=== PATIENT | male | born 1960 | race American Indian/Alaskan Native ===

== ENCOUNTER 2017-11-04 17:04 | Inpatient (IN) | payer OTHER ==
[2017-11-04] MEDS ORDERED: DUONEB *Not for PRN Use IH ONE ×3 (17:21→17:22)
--- NOTE | 2017-11-04 17:37 | Emergency Department Report ---
ED Shortness of Breath HPI - General Stated Complaint: romie Time Seen by Provider: 11/04/17 17:04 Source: patient, RN/MD Mode of arrival: Wheelchair Limitations: Physical Limitation - History of Present Illness Initial Comments: Patient is a 57-year-old male that presents emergency room in respiratory distress and status asthmaticus. Patient states he inhaled bleach and ammonia at work and caused his asthma to flareup. Patient complains of chest pain or shortness of breath. Patient denies fever and chills. Patient also complains of cough. Patient state all the symptoms started just prior to arrival. Patient came by private vehicle. MD Complaint: shortness of breath, cough -: Sudden Severity: severe Quality: aching Consistency: constant Improves With: oxygen, rest, bronchodilators Worsens With: lying flat Known History Of: asthma Context: other (inhalation exposure) Associated Symptoms: denies other symptoms, chest pain, pain with inspiration, cough, sputum production Treatments Prior to Arrival: none - Related Data Home Oxygen Therapy: No Allergies Allergy/AdvReac Type Severity Reaction Status Date / Time No Known Allergies Allergy Unverified 11/04/17 17:26 ED Review of Systems ROS: Stated complaint: romie Other details as noted in HPI Comment: All other systems reviewed and negative Constitutional: denies: chills, fever Eyes: denies: eye pain, eye discharge, vision change ENT: denies: ear pain, throat pain Respiratory: see HPI, cough, shortness of breath. denies: wheezing Cardiovascular: chest pain. denies: palpitations Endocrine: no symptoms reported Gastrointestinal: denies: abdominal pain, nausea, diarrhea Genitourinary: denies: urgency, dysuria Musculoskeletal: denies: back pain, joint swelling, arthralgia Skin: denies: rash, lesions Neurological: denies: headache, weakness, paresthesias Psychiatric: denies: anxiety, depression Hematological/Lymphatic: denies: easy bleeding, easy bruising ED Past Medical Hx - Past Medical History Previous Medical History?: Yes Hx Asthma: Yes - Surgical History Past Surgical History?: No - Family History Family history: hypertension - Social History Smoking Status: Never Smoker Substance Use Type: None ED Physical Exam - General Limitations: Physical Limitation General appearance: alert, in no apparent distress - Head Head exam: Present: atraumatic, normocephalic - Eye Eye exam: Present: normal appearance - ENT ENT exam: Present: mucous membranes moist - Neck Neck exam: Present: normal inspection - Respiratory Respiratory exam: Present: normal lung sounds bilaterally, respiratory distress , wheezes, chest wall tenderness, accessory muscle use - Cardiovascular Cardiovascular Exam: Present: regular rate, normal rhythm. Absent: systolic murmur, diastolic murmur, rubs, gallop - GI/Abdominal GI/Abdominal exam: Present: soft, normal bowel sounds - Rectal Rectal exam: Present: deferred - Extremities Exam Extremities exam: Present: normal inspection - Back Exam Back exam: Present: normal inspection - Neurological Exam Neurological exam: Present: alert, oriented X3 - Psychiatric Psychiatric exam: Present: normal affect, normal mood - Skin Skin exam: Present: warm, dry, intact, normal color. Absent: rash ED Course Vital Signs 11/04/17 11/04/17 11/04/17 17:08 17:24 17:30 Pulse Rate 93 H Pulse Rate [ 101 H Anterior Bilateral Throughout] Respiratory 33 H Rate Respiratory 30 H Rate [Anterior Bilateral Throughout] Blood Pressure 193/110 O2 Sat by Pulse 100 93 Oximetry 11/04/17 11/04/17 11/04/17 17:41 17:45 18:01 Pulse Rate 100 H 100 H Pulse Rate [ 98 H Anterior Bilateral Throughout] Respiratory 34 H 38 H Rate Respiratory 27 H Rate [Anterior Bilateral Throughout] Blood Pressure 193/110 169/103 O2 Sat by Pulse 97 96 Oximetry 11/04/17 11/04/17 18:30 19:00 Pulse Rate 106 H 94 H Pulse Rate [ Anterior Bilateral Throughout] Respiratory 30 H 28 H Rate Respiratory Rate [Anterior Bilateral Throughout] Blood Pressure 164/100 141/86 O2 Sat by Pulse 97 96 Oximetry - Reevaluation(s) Reevaluation #1: Patient improving with interventions. Patient's satting better and work of breathing has decreased. Will place patient on BiPAP and monitor 11/04/17 17:10 Reevaluation #2: Patient improving. Will consult hospitalist for admission. 11/04/17 18:30 ED Medical Decision Making - Lab Data Result diagrams: 11/04/17 17:20 11/04/17 17:20 - EKG Data -: EKG Interpreted by Mi EKG shows normal: sinus rhythm, axis (axis deviation), intervals, QRS complexes , ST-T waves Rate: normal - EKG Data Interpretation: [facility] - Radiology Data Radiology results: report reviewed, image reviewed - Medical Decision Making Patient is a 57-year-old male who presents in motion or with an inhalation causing an exacerbation of his asthma that was in status asthmaticus. Patient improved but will admit for further evaluation. Hospitalist agreed to admit. - Differential Diagnosis S, asthma exacerbation, chest pain, shortness of breath, cough Critical care attestation.: If time is entered above; I have spent that time in minutes in the direct care of this critically ill patient, excluding procedure time. ED Disposition Clinical Impression: Status asthmaticus, Asthma exacerbation, Hypoxia, Shortness of breath, Chest pain Disposition: OP ADMIT IP TO THIS HOSP Is pt being admited?: Yes Does the pt Need Aspirin: No Condition: Critical Time of Disposition: 19:20
[2017-11-04 17:53] LABS: Basophils # (Auto) 0.1 K/mm3 (0.0-0.1); Basophils % (Auto) 0.8 % (0.0-1.8); Eosinophils # (Auto) 0.2 K/mm3 (0.0-0.4); Hematocrit 48.5 % (35.5-45.6); Lymphocytes # (Auto) 2.5 K/mm3 (1.2-5.4); Lymphocytes % (Auto) 30.5 % (13.4-35.0); Mean Corpuscular HGB Conc 33 % (32-34); Mean Corpuscular Hemoglobin 32 pg (28-32); Mean Corpuscular Volume 98 fl (84-94); Monocytes # (Auto) 0.4 K/mm3 (0.0-0.8); Monocytes % (Auto) 5.2 % (0.0-7.3); Platelet Count 290 K/mm3 (140-440); Red Blood Count 4.94 M/mm3 (3.65-5.03); Red Cell Distribution Width 14.3 % (13.2-15.2)
[2017-11-04 18:03] LABS: Albumin 4.7 g/dL (3.9-5); BUN/Creatinine Ratio 13; Blood Urea Nitrogen 13 mg/dL (9-20); Calcium 9.3 mg/dL (8.4-10.2); Hemolysis Index 146
[2017-11-04 18:08] LABS: Alanine Aminotransferase 57 units/L (7-56)
--- NOTE | 2017-11-04 19:33 | XRay Report ---
FINAL REPORT PROCEDURE: XR CHEST 1V AP TECHNIQUE: Chest radiograph anteroposterior view. CPT 70819 HISTORY: Shortness of breath COMPARISON: No prior studies are available for comparison. FINDINGS: Heart: Normal. Mediastinum/Vessels: Moderate central congestion with cephalization of flow Lungs/Pleural space: Normal. Bony thorax: No acute osseous abnormality. Life support devices: None. IMPRESSION: Central congestion without isiah heart failure. COPD..
[2017-11-04] MEDS ORDERED: ZOFRAN IV PRN (22:59)
[2017-11-04] MEDS ORDERED: SODIUM CHLORIDE FLUSH SYRINGE 10 ML IV PRN (22:59)
[2017-11-04] MEDS ORDERED: PERCOCET 5/325 PO PRN (22:59)
[2017-11-04] MEDS ORDERED: TYLENOL PO PRN (22:59)
--- NOTE | 2017-11-04 22:59 | History and Physical Report ---
History of Present Illness Date of examination: 11/04/17 Date of admission: 11/04/2017 Chief complaint: Chief complaint: Increasing shortness of breath for a few hours after exposure to bleach History of present illness: History of Present Illness Patient is a 57-year-old male that presents emergency room in respiratory distress and status asthmaticus. Patient states he inhaled bleach and ammonia at work and caused his asthma to flareup. Patient complains of chest pain or shortness of breath. Patient denies fever and chills. Patient also complains of cough. Patient state all the symptoms started just prior to arrival. Patient came by private vehicle. 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 Severe wheezing present. No fever no chills. Past Medical History Previous Medical History?: Yes Hx Asthma: Yes Surgical History Past Surgical History?: No Family History Family history: hypertension Social History Smoking Status: Never Smoker Substance Use Type: None Review of Systems ROS: Stated complaint: romie Other details as noted in HPI Comment: All other systems reviewed and negative Constitutional: denies: chills, fever Eyes: denies: eye pain, eye discharge, vision change ENT: denies: ear pain, throat pain Respiratory: see HPI, cough, shortness of breath. wheezing present Cardiovascular: chest pain. denies: palpitations Endocrine: no symptoms reported Gastrointestinal: denies: abdominal pain, nausea, diarrhea Genitourinary: denies: urgency, dysuria Musculoskeletal: denies: back pain, joint swelling, arthralgia Skin: denies: rash, lesions Neurological: denies: headache, weakness, paresthesias Psychiatric: denies: anxiety, depression Medications and Allergies Allergies Allergy/AdvReac Type Severity Reaction Status Date / Time No Known Allergies Allergy Unverified 11/04/17 17:26 Home Medications Medication Instructions Recorded Confirmed Last Taken Type Atenolol [Tenormin] 50 mg PO DAILY 11/04/17 11/04/17 Unknown History amLODIPine [Norvasc] 5 mg PO QHS 11/04/17 11/04/17 Unknown History Exam - Physical Exam Narrative exam: Patient in moderate to severe respiratory distress on BiPAP - Constitutional Vitals: Temp Pulse Resp BP Pulse Ox 99 F 86 24 150/92 95 11/04/17 19:52 11/04/17 21:30 11/04/17 21:30 11/04/17 21:30 11/04/17 21:30 General appearance: Present: severe distress, well-nourished - EENT Eyes: Present: PERRL ENT: hearing intact, clear oral mucosa - Neck Neck: Present: supple, normal ROM - Respiratory Respiratory effort: normal Respiratory: bilateral: diminished, rhonchi - Cardiovascular Heart rate: 80 Rhythm: regular Heart Sounds: Present: S1 & S2. Absent: rub, click - Extremities Extremities: no ischemia, pulses intact, pulses symmetrical, No edema Peripheral Pulses: within normal limits - Abdominal General gastrointestinal: Present: soft, non-tender, non-distended, normal bowel sounds Male genitourinary: Present: normal - Rectal Rectal Exam: deferred - Integumentary Integumentary: Present: clear, warm, dry - Musculoskeletal Musculoskeletal: gait normal, strength equal bilaterally - Psychiatric Psychiatric: appropriate mood/affect, intact judgment & insight - Neurologic Neurologic: CNII-XII intact, moves all extremities - Allied Health Allied health notes reviewed: nursing, case management Results - Labs CBC & Chem 7: 11/04/17 17:20 11/04/17 17:20 Labs: Laboratory Last Values WBC 8.3 K/mm3 (4.5-11.0) 11/04/17 17:20 RBC 4.94 M/mm3 (3.65-5.03) 11/04/17 17:20 Hgb 16.0 gm/dl (11.8-15.2) H 11/04/17 17:20 Hct 48.5 % (35.5-45.6) H 11/04/17 17:20 MCV 98 fl (84-94) H 11/04/17 17:20 MCH 32 pg (28-32) 11/04/17 17:20 MCHC 33 % (32-34) 11/04/17 17:20 RDW 14.3 % (13.2-15.2) 11/04/17 17:20 Plt Count 290 K/mm3 (140-440) 11/04/17 17:20 Lymph % (Auto) 30.5 % (13.4-35.0) 11/04/17 17:20 [place] % (Auto) 5.2 % (0.0-7.3) 11/04/17 17:20 Eos % (Auto) 2.0 % (0.0-4.3) 11/04/17 17:20 Baso % (Auto) 0.8 % (0.0-1.8) 11/04/17 17:20 Lymph # 2.5 K/mm3 (1.2-5.4) 11/04/17 17:20 [place] # 0.4 K/mm3 (0.0-0.8) 11/04/17 17:20 Eos # 0.2 K/mm3 (0.0-0.4) 11/04/17 17:20 Baso # 0.1 K/mm3 (0.0-0.1) 11/04/17 17:20 Seg Neutrophils % 61.5 % (40.0-70.0) 11/04/17 17:20 Seg Neutrophils # 5.1 K/mm3 (1.8-7.7) 11/04/17 17:20 Sodium 139 mmol/L (137-145) 11/04/17 17:20 Potassium 5.3 mmol/L (3.6-5.0) H 11/04/17 17:20 Chloride 94.6 mmol/L (98-107) L 11/04/17 17:20 Carbon Dioxide 28 mmol/L (22-30) 11/04/17 17:20 Anion Gap 22 mmol/L 11/04/17 17:20 BUN 13 mg/dL (9-20) 11/04/17 17:20 Creatinine 1.0 mg/dL (0.8-1.5) 11/04/17 17:20 Estimated GFR > 60 ml/min 11/04/17 17:20 BUN/Creatinine Ratio 13 % 11/04/17 17:20 Glucose 121 mg/dL (75-100) H 11/04/17 17:20 Calcium 9.3 mg/dL (8.4-10.2) 11/04/17 17:20 Total Bilirubin 0.20 mg/dL (0.1-1.2) 11/04/17 17:20 AST 53 units/L (5-40) H 11/04/17 17:20 ALT 57 units/L (7-56) H 11/04/17 17:20 Alkaline Phosphatase 76 units/L (35-129) 11/04/17 17:20 Total Protein 8.3 g/dL (6.3-8.2) H 11/04/17 17:20 Albumin 4.7 g/dL (3.9-5) 11/04/17 17:20 Albumin/Globulin Ratio 1.3 % 11/04/17 17:20 Short CBC 11/04/17 Range/Units 17:20 WBC 8.3 (4.5-11.0) K/mm3 Hgb 16.0 H (11.8-15.2) gm/dl Hct 48.5 H (35.5-45.6) % Plt Count 290 (140-440) K/mm3 BMP 11/04/17 17:20 Sodium 139 Potassium 5.3 H Chloride 94.6 L Carbon Dioxide 28 BUN 13 Creatinine 1.0 Glucose 121 H Calcium 9.3 Liver Function 11/04/17 Range/Units 17:20 Total Bilirubin 0.20 (0.1-1.2) mg/dL AST 53 H (5-40) units/L ALT 57 H (7-56) units/L Alkaline Phosphatase 76 (35-129) units/L Albumin 4.7 (3.9-5) g/dL - Imaging and Cardiology Imaging and Cardiology: Chest x-ray Central congestion without isiah heart failure COPD Assessment and Plan Advance Directives: Yes (full code) VTE prophylaxis?: Chemical Plan of care discussed with patient/family: Yes - Patient Problems (1) Acute respiratory failure with hypoxemia Current Visit: Yes Status: Acute Plan to address problem: Patient stats were low and had to be initiated on BiPAP. 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 Bleach may have precipitated his asthma. We will defer to pulmonary for a suggestions (4) Hyperkalemia Current Visit: Yes Status: Acute Plan to address problem: Mild. Should resolve with IV fluids. Recheck potassium. (5) DVT prophylaxis Current Visit: Yes Status: Acute Plan to address problem: Subcutaneous heparin
[2017-11-04] MEDS ORDERED: DUONEB *Not for PRN Use IH (23:25)
--- NOTE | 2017-11-04 23:28 | Event Note ---
Date: 11/04/17
[2017-11-04] MEDS ORDERED: HEPARIN ONE (23:35)
[2017-11-04] MEDS ORDERED: PROVENTIL IH PRN (23:41)
[2017-11-04] MEDS: HEPARIN SUB-Q SCH (23:43)
[2017-11-05] MEDS: HEPARIN SUB-Q SCH ×3 (07:12→21:13)
[2017-11-05] MEDS ORDERED: LASIX IV ONE (09:00)
[2017-11-05] MEDS ORDERED: NON-FORMULARY (Atenolol 50 MG) PO SCH (10:00)
[2017-11-05] MEDS: DUONEB *Not for PRN Use IH SCH ×4 (10:13→22:36)
[2017-11-05] MEDS: NACL 0.9% 1000 ML 1,000 ML IV SCH (10:16)
[2017-11-05 10:23] LABS: BUN/Creatinine Ratio 13; Blood Urea Nitrogen 12 mg/dL (9-20); Calcium 9.7 mg/dL (8.4-10.2); Hemolysis Index 4
[2017-11-05] MEDS: LEVAQUIN 750MG/150ML 750 MG/150 ML BAG IV SCH (10:25)
[2017-11-05] MEDS: TENORMIN PO SCH (10:32)
[2017-11-05] MEDS: SODIUM CHLORIDE FLUSH SYRINGE 10 ML IV SCH ×2 (10:59→21:25)
[2017-11-05] MEDS ORDERED: Fluarix Quad 2017-2018(36 MOS+ IM ONE (12:00)
--- NOTE | 2017-11-05 13:16 | Progress Note ---
Assessment and Plan Assessment and plan: --Acute hypoxic respiratory failure; secondary bronchospasm due to allergic reaction, symptoms slightly improved Continue oxygen and bronchodilators, IV steroids and supportive care --Acute exacerbation of bronchial asthma; nebulizers, oxygen, IV steroids, IV antibiotics --Acute bronchitis/pneumonitis; continue IV antibiotics follow cultures --Hyperkalemia; corrected, closely monitor electrolytes --Mild transaminitis; unknown etiology, closely monitor --Hypertension; moderate control, continue current antihypertensives amlodipine and atenolol and when necessary hydralazine --DVT prophylaxis; heparin Start tapering steroids, evaluate for home oxygen upon discharge Possible discharge in 1-2 days if stable History Interval history: Patient seen and examined medical records reviewed No new events reported by the nursing staff Feels slightly better but still has some wheeze and shortness of breath Denies chest pain Alert awake oriented 3 Vital signs reviewed Hospitalist Physical - Constitutional Vitals: Temp Pulse Resp BP Pulse Ox 99.2 F 85 20 131/88 96 11/05/17 11:44 11/05/17 11:44 11/05/17 11:44 11/05/17 11:43 11/05/17 11:44 General appearance: Present: no acute distress, well-nourished - EENT Eyes: Present: PERRL, EOM intact - Neck Neck: Present: supple, normal ROM - Respiratory Respiratory effort: normal Respiratory: bilateral: diminished, wheezing, negative: rales, rhonchi - Cardiovascular Rhythm: regular Heart Sounds: Present: S1 & S2 - Extremities Extremities: no ischemia, No edema - Abdominal General gastrointestinal: soft, non-tender, non-distended, normal bowel sounds - Integumentary Integumentary: Present: clear, warm - Psychiatric Psychiatric: appropriate mood/affect, cooperative - Neurologic Neurologic: CNII-XII intact, moves all extremities Results - Labs CBC & Chem 7: 11/04/17 17:20 11/05/17 09:01 Labs: Laboratory Last Values WBC 8.3 K/mm3 (4.5-11.0) 11/04/17 17:20 RBC 4.94 M/mm3 (3.65-5.03) 11/04/17 17:20 Hgb 16.0 gm/dl (11.8-15.2) H 11/04/17 17:20 Hct 48.5 % (35.5-45.6) H 11/04/17 17:20 MCV 98 fl (84-94) H 11/04/17 17:20 MCH 32 pg (28-32) 11/04/17 17:20 MCHC 33 % (32-34) 11/04/17 17:20 RDW 14.3 % (13.2-15.2) 11/04/17 17:20 Plt Count 290 K/mm3 (140-440) 11/04/17 17:20 Lymph % (Auto) 30.5 % (13.4-35.0) 11/04/17 17:20 [place] % (Auto) 5.2 % (0.0-7.3) 11/04/17 17:20 Eos % (Auto) 2.0 % (0.0-4.3) 11/04/17 17:20 Baso % (Auto) 0.8 % (0.0-1.8) 11/04/17 17:20 Lymph # 2.5 K/mm3 (1.2-5.4) 11/04/17 17:20 [place] # 0.4 K/mm3 (0.0-0.8) 11/04/17 17:20 Eos # 0.2 K/mm3 (0.0-0.4) 11/04/17 17:20 Baso # 0.1 K/mm3 (0.0-0.1) 11/04/17 17:20 Seg Neutrophils % 61.5 % (40.0-70.0) 11/04/17 17:20 Seg Neutrophils # 5.1 K/mm3 (1.8-7.7) 11/04/17 17:20 Sodium 139 mmol/L (137-145) 11/05/17 09:01 Potassium 4.7 mmol/L (3.6-5.0) 11/05/17 09:01 Chloride 96.8 mmol/L (98-107) L 11/05/17 09:01 Carbon Dioxide 26 mmol/L (22-30) 11/05/17 09:01 Anion Gap 21 mmol/L 11/05/17 09:01 BUN 12 mg/dL (9-20) 11/05/17 09:01 Creatinine 0.9 mg/dL (0.8-1.5) 11/05/17 09:01 Estimated GFR > 60 ml/min 11/05/17 09:01 BUN/Creatinine Ratio 13 % 11/05/17 09:01 Glucose 173 mg/dL (75-100) H 11/05/17 09:01 Hemoglobin A1c 6.2 % (4-6) H 11/04/17 23:45 Calcium 9.7 mg/dL (8.4-10.2) 11/05/17 09:01 Total Bilirubin 0.20 mg/dL (0.1-1.2) 11/04/17 17:20 AST 53 units/L (5-40) H 11/04/17 17:20 ALT 57 units/L (7-56) H 11/04/17 17:20 Alkaline Phosphatase 76 units/L (35-129) 11/04/17 17:20 Total Protein 8.3 g/dL (6.3-8.2) H 11/04/17 17:20 Albumin 4.7 g/dL (3.9-5) 11/04/17 17:20 Albumin/Globulin Ratio 1.3 % 11/04/17 17:20
--- NOTE | 2017-11-05 18:07 | Consultation ---
History of Present Illness Consult date: 11/05/17 Reason for consult: dyspnea, cough History of present illness: PULMONARY CONSULTATION DR. ALMONTE THANK YOU FOR ASKING US TO PARTICIPATE IN THE CARE OF THIS PATIENT. This is 57 year old [place] male admitted with shortness of breath and cough. Patient has history of smoking 1/2 a pack a day for 25 years. Patient may have COPD exacerbation. Patient has cough with productive yellow sputum and nasal congestion. Patient went to work with these symptoms, Patient inhaled bleach and ammonia at work caused more exacerbation of COPD. Patient denies child chaudhry asthma. Patient has history of hypertension. No known allergies to medications. Denies alcohol or drug abuse. Patient . Children 1.Denies fever and chills. Past History Past Medical History: COPD, hypertension Social history: smoking. denies: alcohol abuse, prescription drug abuse, IV drug use Medications and Allergies Allergies Allergy/AdvReac Type Severity Reaction Status Date / Time No Known Allergies Allergy Unverified 11/04/17 17:26 Home Medications Medication Instructions Recorded Confirmed Last Taken Type Atenolol [Tenormin] 50 mg PO DAILY 11/04/17 11/04/17 Unknown History amLODIPine [Norvasc] 5 mg PO QHS 11/04/17 11/04/17 Unknown History Active Meds: Active Medications Acetaminophen (Tylenol) 650 mg PO Q4H PRN PRN Reason: Pain MILD(1-3)/Fever >100.5/GEE Albuterol (Proventil) 2.5 mg IH Q3HRT PRN PRN Reason: Wheezing Albuterol/Ipratropium (Duoneb *Not For Prn Use*) 1 ampul IH QIDRT [facility] Last Admin: 11/05/17 15:36 Dose: 1 ampul Amlodipine Besylate (Norvasc) 5 mg PO QHS [facility] Atenolol (Tenormin) 50 mg PO QDAY [facility] Last Admin: 11/05/17 10:32 Dose: 50 mg Heparin Sodium (Porcine) (Heparin) 5,000 unit SUB-Q Q8HR [facility] Last Admin: 11/05/17 14:15 Dose: 5,000 unit Levofloxacin/Dextrose (Levaquin 750mg/150ml) 750 mg in 150 mls @ 100 mls/hr IV Q24HR [facility]; Protocol Last Admin: 11/05/17 10:25 Dose: 100 mls/hr Sodium Chloride (Nacl 0.9% 1000 Ml) 1,000 mls @ 75 mls/hr IV DIRECT [facility] Last Admin: 11/05/17 10:16 Dose: 75 mls/hr Methylprednisolone Sodium Succinate (Solu-Medrol) 125 mg IV Q8H [facility] Last Admin: 11/05/17 10:43 Dose: 125 mg Ondansetron HCl (Zofran) 4 mg IV Q8H PRN PRN Reason: Nausea And Vomiting Oxycodone/Acetaminophen (Percocet 5/325) 1 tab PO Q6H PRN PRN Reason: Pain, Moderate (4-6) Sodium Chloride (Sodium Chloride Flush Syringe 10 Ml) 10 ml IV BID [facility] Last Admin: 11/05/17 10:59 Dose: Not Given Sodium Chloride (Sodium Chloride Flush Syringe 10 Ml) 10 ml IV PRN PRN PRN Reason: LINE FLUSH Review of Systems All systems: negative Physical Examination Vital signs: Vital Signs Pulse Ox 100 11/04/17 17:08 General appearance: no acute distress, alert Eyes: non-icteric ENT: oropharynx moist Neck: supple, no JVD Ascultation: Bilateral: diminished breath sounds (Prolonged expiratory phase.) Cardiovascular: regular rate and rhythm Gastrointestinal: normoactive bowel sounds, soft, non-tender Integumentary: normal Extremities: no cyanosis, no edema Musculoskeletal: no deformities Gait: normal gait normal mental status, non-focal exam, pupils equal and round, CN II-XII normal mood appropriate Results - Laboratory Findings CBC and BMP: 11/04/17 17:20 11/05/17 09:01 Abnormal lab findings: Abnormal Labs 11/04/17 11/04/17 11/04/17 17:20 17:20 23:45 Hgb 16.0 H Hct 48.5 H MCV 98 H Potassium 5.3 H Chloride 94.6 L Glucose 121 H Hemoglobin A1c 6.2 H AST 53 H ALT 57 H Total Protein 8.3 H 11/05/17 09:01 Hgb Hct MCV Potassium Chloride 96.8 L Glucose 173 H Hemoglobin A1c AST ALT Total Protein - Diagnostic Findings Chest x-ray: report reviewed (Central congestion with out isiah failure.), image reviewed Assessment and Plan his is 57 year old [place] male admitted with shortness of breath and cough. Patient has history of smoking 1/2 a pack a day for 25 years. Patient may have COPD exacerbation. Patient has cough with productive yellow sputum and nasal congestion. Patient went to work with these symptoms, Patient inhaled bleach and ammonia at work caused more exacerbation of COPD. Patient denies child chaudhry asthma. Patient has history of hypertension. No known allergies to medications. Denies alcohol or drug abuse. Patient . Children 1.Denies fever and chills. - Patient Problems (1) COPD exacerbation Current Visit: Yes Status: Acute Plan to address problem: O2 2 litres via nasal canula. Albuterol/atrovent aerosol treatments q 6 hours. Continue I/V solumedral Continue S/C Heparin. Recommend PFTs. Counselled to stop smoking. (2) Acute bronchitis Current Visit: Yes Status: Acute Plan to address problem: Patient is on levaquine. (3) Allergic rhinitis Current Visit: Yes Status: Acute Plan to address problem: Recommend claritin 10 mg po qd prn for nasal congestion. (4) Exposure to chemical inhalation Current Visit: Yes Status: Acute Plan to address problem: Repeat chest xray. ABGs on room air.
[2017-11-05] MEDS ORDERED: NORVASC PO SCH (22:00)
[2017-11-06] MEDS: NACL 0.9% 1000 ML 1,000 ML IV SCH (01:59)
[2017-11-06] MEDS: HEPARIN SUB-Q SCH ×2 (05:43→13:48)
[2017-11-06 08:11] VITALS: BP 150/89
[2017-11-06] MEDS: DUONEB *Not for PRN Use IH SCH (09:05)
[2017-11-06] MEDS: LEVAQUIN 750MG/150ML 750 MG/150 ML BAG IV SCH (09:50)
[2017-11-06] MEDS: SODIUM CHLORIDE FLUSH SYRINGE 10 ML IV SCH (09:51)
[2017-11-06] MEDS: TENORMIN PO SCH (09:55)
--- NOTE | 2017-11-06 12:58 | Progress Note ---
Hospitalist Physical - Constitutional Vitals: Temp Pulse Resp BP Pulse Ox 98.0 F 96 H 19 150/89 98 11/06/17 07:52 11/06/17 09:22 11/06/17 09:22 11/06/17 07:52 11/06/17 07:52 General appearance: Present: no acute distress, well-nourished Results - Labs CBC & Chem 7: 11/04/17 17:20 11/05/17 09:01 Labs: Laboratory Last Values WBC 8.3 K/mm3 (4.5-11.0) 11/04/17 17:20 RBC 4.94 M/mm3 (3.65-5.03) 11/04/17 17:20 Hgb 16.0 gm/dl (11.8-15.2) H 11/04/17 17:20 Hct 48.5 % (35.5-45.6) H 11/04/17 17:20 MCV 98 fl (84-94) H 11/04/17 17:20 MCH 32 pg (28-32) 11/04/17 17:20 MCHC 33 % (32-34) 11/04/17 17:20 RDW 14.3 % (13.2-15.2) 11/04/17 17:20 Plt Count 290 K/mm3 (140-440) 11/04/17 17:20 Lymph % (Auto) 30.5 % (13.4-35.0) 11/04/17 17:20 [place] % (Auto) 5.2 % (0.0-7.3) 11/04/17 17:20 Eos % (Auto) 2.0 % (0.0-4.3) 11/04/17 17:20 Baso % (Auto) 0.8 % (0.0-1.8) 11/04/17 17:20 Lymph # 2.5 K/mm3 (1.2-5.4) 11/04/17 17:20 [place] # 0.4 K/mm3 (0.0-0.8) 11/04/17 17:20 Eos # 0.2 K/mm3 (0.0-0.4) 11/04/17 17:20 Baso # 0.1 K/mm3 (0.0-0.1) 11/04/17 17:20 Seg Neutrophils % 61.5 % (40.0-70.0) 11/04/17 17:20 Seg Neutrophils # 5.1 K/mm3 (1.8-7.7) 11/04/17 17:20 Sodium 139 mmol/L (137-145) 11/05/17 09:01 Potassium 4.7 mmol/L (3.6-5.0) 11/05/17 09:01 Chloride 96.8 mmol/L (98-107) L 11/05/17 09:01 Carbon Dioxide 26 mmol/L (22-30) 11/05/17 09:01 Anion Gap 21 mmol/L 11/05/17 09:01 BUN 12 mg/dL (9-20) 11/05/17 09:01 Creatinine 0.9 mg/dL (0.8-1.5) 11/05/17 09:01 Estimated GFR > 60 ml/min 11/05/17 09:01 BUN/Creatinine Ratio 13 % 11/05/17 09:01 Glucose 173 mg/dL (75-100) H 11/05/17 09:01 Hemoglobin A1c 6.2 % (4-6) H 11/04/17 23:45 Calcium 9.7 mg/dL (8.4-10.2) 11/05/17 09:01 Total Bilirubin 0.20 mg/dL (0.1-1.2) 11/04/17 17:20 AST 53 units/L (5-40) H 11/04/17 17:20 ALT 57 units/L (7-56) H 11/04/17 17:20 Alkaline Phosphatase 76 units/L (35-129) 11/04/17 17:20 Total Protein 8.3 g/dL (6.3-8.2) H 11/04/17 17:20 Albumin 4.7 g/dL (3.9-5) 11/04/17 17:20 Albumin/Globulin Ratio 1.3 % 11/04/17 17:20
--- NOTE | 2017-11-06 13:12 | Discharge Summary ---
Providers - Providers Date of Admission: 11/04/17 22:59 Date of discharge: 11/06/17 Attending physician: TRUPTI WILLIAM 11/04/17 22:59 Consult to Physician [CONS] Routine Comment: Consulting Provider: FROY FRENCH Physician Instructions: Reason For Exam: asthma exacerb Primary care physician: ALEXANDRE TAVAREZ Hospitalization Reason for admission: Acute respiratory failure/severe bronchospasm Condition: Fair Pertinent studies: Chest x-ray; central congestion without isiah heart failure, COPD Hospital course: very pleasant 57-year-old male patient with significant past medical history of bronchial asthma For screening his house and was exposed to fumes of bleach, suddenly started having acute shortness of breath Severe wheeze. Admitted to the hospital managed with oxygen and high-dose steroids, IV antibiotics and supportive care Patient's symptoms gradually improved, high-dose steroids gradually tapered Today's comfortable in bed no new complaints, denies shortness of breath or wheeze Vital signs are stable Physical examination prior to discharge is unremarkable Patient is hemodynamically and clinically stable for discharge Advised to follow with primary care physician, and pulmonary Also advised to avoid any allergens that may cause irritation and flareup of asthma. Patient verbalized understanding Discharge diagnosis; --Acute hypoxic respiratory failure; -- bronchospasm due to reaction bleach --Acute exacerbation of bronchial asthma; --Acute bronchitis/pneumonitis; --Hyperkalemia; corrected, --Mild transaminitis; follow-up primary care physician --Hypertension; Disposition: DC-01 TO HOME OR SELFCARE Time spent for discharge: 31 min Core Measure Documentation - Palliative Care Palliative Care/ Comfort Measures: Not Applicable - Core Measures Any of the following diagnoses?: none Exam - Constitutional Vitals: Temp Pulse Resp BP Pulse Ox 98.0 F 96 H 19 150/89 98 11/06/17 07:52 11/06/17 09:22 11/06/17 09:22 11/06/17 07:52 11/06/17 07:52 General appearance: Present: no acute distress, well-nourished - EENT Eyes: Present: PERRL, EOM intact - Neck Neck: Present: supple, normal ROM - Respiratory Respiratory effort: normal Respiratory: negative: rales, rhonchi, wheezing - Cardiovascular Rhythm: regular Heart Sounds: Present: S1 & S2 - Extremities Extremities: no ischemia, No edema - Abdominal General gastrointestinal: Present: soft, non-tender, non-distended - Integumentary Integumentary: Present: clear, warm - Musculoskeletal Musculoskeletal: strength equal bilaterally - Psychiatric Psychiatric: appropriate mood/affect, cooperative - Neurologic Neurologic: CNII-XII intact, moves all extremities Plan Activity: no restrictions Diet: regular Follow up with: ALEXANDRE TAVAREZ MD [Primary Care Provider] - 7 Days FROY FRENCH MD [Staff Physician] - 7 Days Prescriptions: ALBUTEROL Inhaler [ProAir HFA Inhaler] 2 puff IH QID PRN #1 inhalation PRN Reason: Shortness Of Breath Azithromycin [Zithromax Z-MONA] 0 mg PO DAILY #1 tab predniSONE [Deltasone] 10 mg PO .TAPER #21 tab
== END 2017-11-06 14:50 | disposition home or self-care (01) | DRG 193 ==
LOC: ED 17:04 → 3A 22:59
PROVIDERS: ADMIT Internal Medicine; ATTEND Internal Medicine
PROC: 5A09357 Assistance with Respiratory Ventilation, Less than 24 Consecutive Hours, Continuous Positive Airway Pressure (ICD-10-PCS; 2017-11-04)
PROC: 3E0234Z Introduction of Serum, Toxoid and Vaccine into Muscle, Percutaneous Approach (ICD-10-PCS; principal; 2017-11-05)
DX: J18.9 Pneumonia, unspecified organism (principal); J96.01 Acute respiratory failure with hypoxia; J45.901 Unspecified asthma with (acute) exacerbation; J44.0 Chronic obstructive pulmonary disease with (acute) lower respiratory infection; J44.1 Chronic obstructive pulmonary disease with (acute) exacerbation; J45.902 Unspecified asthma with status asthmaticus; J20.9 Acute bronchitis, unspecified; E87.5 Hyperkalemia; R74.0 Nonspecific elevation of levels of transaminase and lactic acid dehydrogenase [LDH]; I10 Essential (primary) hypertension; T78.49XA Other allergy, initial encounter; X58.XXXA Exposure to other specified factors, initial encounter; J30.9 Allergic rhinitis, unspecified; Z23 Encounter for immunization; Z82.49 Family history of ischemic heart disease and other diseases of the circulatory system
CPT/HCPCS: 36415; 71045; 80048; 80053; 83036; 85025; 90686; 93005; 93010; 94640; 96374; J1644; J1940; J1956; J2930; J7030